=== PATIENT | female | born 1960 | race Two or more races ===

== ENCOUNTER 2023-12-02 09:54 | Emergency (ER) | payer OTHER ==
[~2023-12-02] VITALS: Ht 162.6 cm; Wt 67.6 kg
[2023-12-02] MEDS ORDERED: CELEXA10 MG PO (10:09)
[2023-12-02] MEDS ORDERED: AMITIZA8 MCG PO (10:09)
== END 2023-12-02 10:54 | disposition home or self-care (01) ==
LOC: ER 09:55
DX: R53.81 Other malaise (principal); R05.9 Cough, unspecified